=== PATIENT | male | born 1990 | race Caucasian/White ===

== ENCOUNTER 2018-04-13 20:38 | Emergency (ER) | payer BC ==
[~2018-04-13 20:38] MED LIST: CIP500 PO; DOC100 PO; FOLI-68 PO; IBU800 PO; LOR5 PO; METH30CP PO; MULT-1379 PO; NIC10R INH; THIA100T6 PO
[2018-04-13 20:40] VITALS: BP 113/72
--- NOTE | 2018-04-13 20:45 | ER Report ---
History and Physical Time Seen By MD: 20:45 HPI/ROS CHIEF COMPLAINT: Group Home clearance, alcohol intoxication. HISTORY OF PRESENT ILLNESS: 27-year-old male patient presents to emergency room with the [facility], patient is being arrested for intoxication. Patient states that he had 10-12 drinks tonight. Patient states that he is not having any pain, any nausea, vomiting or diarrhea. Patient states that he has not had any fevers or chills. Allergies: Coded Allergies: No Known Drug Allergies (Verified , 02/15/17) Home Meds Reported Medications Nicotine (NICOTROL) 10 Mg/Inh Ctr, 10 MG INH PRN Y for NICOTINE REPLACEMENT 02/18/17 Thiamine HCl (B-1) 100 Mg Tablet, 100 MG PO QDAY 02/18/17 Multivits,-,Other Min (THERA-M) 1 Each Tablet, 1 EACH PO DAILY 02/18/17 Folic Acid (FOLIC ACID) 1 Mg Tablet, 1 MG PO QDAY, TAB 02/18/17 Past Medical/Surgical History Patient has a past medical history of farsightedness, and left ear, alcohol abuse, anxiety, suicide attempt. Patient denies any surgical history. Reviewed Nurses Notes: Yes Hx Smoking: Yes Smoking Status: Current: Every Day Smoker Exposure to Second Hand Smoke?: Yes Hx Substance Use Disorder: No Hx Alcohol Use: Yes Constitutional Vital Sign - Last 24 Hours 04/13/18 20:40 Temp 98.6 Pulse 86 Resp 16 B/P (MAP) 113/72 Pulse Ox 89 O2 Delivery Room Air Physical Exam General appearance: Alert no distress. Respiratory: Chest is non tender, lungs are clear to auscultation. Cardiac: Regular rate and rhythm. Skin: Patient had some redness to his chest with old abrasions noted. There is no acute breaks in the skin. DIFFERENTIAL DIAGNOSIS: After history and physical exam differential diagnosis was considered for alcohol intoxication, alcohol abuse. Medical Decision Making ED Course/Re-evaluation ED Course Patient was admitted and examined, history and physical were obtained. Differential diagnoses were considered. On examination patient has some redness to his chest, however he did have old abrasions noted. Patient is alert, oriented although his speech is slurred. On physical exam there is no acute findings for any reason that he cannot be taken to the senior care center. I did discuss with the patient and the officers that I would like him to be in a holding cell near the medical staff so that they can monitor him. He is to talk with the nurses with any concerns. He is return to the emergency room if condition worsens. Patient officers verbalized understanding and agreement. Decision to Disposition Date: Apr 13, 2018 Decision to Disposition Time: 20:54 Depart Departure Latest Vital Signs Vital Signs Date Time Temp Pulse Resp B/P (MAP) Pulse Ox O2 Delivery O2 Flow Rate FiO2 04/13/18 20:40 98.6 86 16 113/72 89 Room Air Impression: Primary Impression: Medical clearance for incarceration Additional Impression: Alcohol intoxication Condition: Condition Unchanged Disposition: [facility] TO NURSING HOME/CORRECTIONAL F Patient Instructions: Alcohol Intoxication (ED) Additional Instructions: Increase fluid intake. Get plenty of rest. Follow up with the medical staff at the senior care center with any concerns. Quit drinking. Problem Qualifiers Additional Impression: Alcohol intoxication Complication of substance-induced condition: uncomplicated Qualified Codes: F10.920 - Alcohol use, unspecified with intoxication, uncomplicated TAJ VILLAVICENCIO Apr 13, 2018 20:45
== END 2018-04-13 21:00 ==
LOC: ER 20:53
DX: F10.920 Alcohol use, unspecified with intoxication, uncomplicated (principal); F17.210 Nicotine dependence, cigarettes, uncomplicated
CPT/HCPCS: 99281

== ENCOUNTER 2018-12-08 17:54 | Emergency (ER) | payer BC ==
--- NOTE | 2018-12-08 18:05 | ER Report ---
History and Physical Time Seen By : 18:05 HPI/ROS CHIEF COMPLAINT: altered mental status, seizure, alcohol withdrawal. HISTORY OF PRESENT ILLNESS: This is a 28 year old male. He has a history of heavy alcohol use, about a case per day plus whiskey if he can get it. Has stopped drinking suddenly, not by choice, but by financial reasons. He has a seizure and was brought to the ER. He denies history of seizures when stopping drinking, but uncertain if he is even understanding the question. He is having problems answering questions, not understanding what I am asking. I am uncertain exactly when his last drink was. He is oriented only to self. He does not want to be here. He cannot even sit ups and sign the EMS computer form. He keeps p ulling at clothing and lines and blood pressure cuff, not understanding what I am saying to him. Report from parents is that they did kick him out recently because of the drinking, he is currently staying with a friend. He has a history of detox programs in the past. REVIEW OF SYSTEMS: Unable to obtain. Allergies: Coded Allergies: No Known Drug Allergies (Verified , 12/08/18) Home Meds Discontinued Reported Medications Nicotine (NICOTROL) 10 Mg/Inh Ctr, 10 MG INH PRN PRN for NICOTINE REPLACEMENT 02/18/17 Thiamine HCl (B-1) 100 Mg Tablet, 100 MG PO QDAY 02/18/17 Multivits,Th W-Fe,Other Min (THERA-M) 1 Each Tablet, 1 EACH PO DAILY 02/18/17 Folic Acid (FOLIC ACID) 1 Mg Tablet, 1 MG PO QDAY, TAB 02/18/17 Reviewed Nurses Notes: Yes Hx Smoking: Yes Smoking Status: Current: Every Day Smoker Exposure to Second Hand Smoke?: Yes Hx Substance Use Disorder: No Hx Alcohol Use: Yes Constitutional Vital Sign - Last 24 Hours 12/08/18 12/08/18 12/08/18 12/08/18 17:58 18:03 18:15 18:24 Temp 98.6 Pulse 81 98 Resp 20 29 B/P (MAP) 164/116 164/116 (132) 151/96 (114) Pulse Ox 93 O2 Delivery Nasal Cannula 12/08/18 12/08/18 12/08/18 12/08/18 18:30 19:30 20:00 20:21 B/P (MAP) 151/91 (111) 140/103 (115) 156/96 (116) Pulse Ox 81 12/08/18 12/08/18 12/09/18 12/09/18 20:30 21:00 01:00 03:00 Pulse 74 88 B/P (MAP) 112/76 (88) 150/99 (116) Pulse Ox 95 96 12/09/18 04:24 B/P (MAP) 144/98 (113) Intake and Output 12/08/18 12/08/18 12/09/18 15:00 23:00 07:00 Intake Total 1000 ml Balance 1000 ml Physical Exam General Appearance: Confused, alert only to self. No immediate need for airw ay protection. No acute distress. Shaky and weak. Eyes: Pupils are equal, round. Reactive to light. No pallor, injection or icterus. Extraocular movements are intact. ENT: Mucous membranes are moist. Normal oral mucosa. Posterior oropharynx is normal. Normal tympanic membranes and canals. Neck: Supple and non tender. No lymphadenopathy. Respiratory: Lungs are clear to auscultation. Cardiovascular: Regular rate and rhythm. No murmurs, gallops or rubs. Normal capillary refill. Gastrointestinal: Abdomen is soft and non tender. Nondistended. Normal active bowel sounds. Neurological: Alert and oriented to self only. He is moving all extremities. No focal deficits noted by observing, but he is unable to follow commands for full neuro exam. Skin: Warm and dry. No rashes. Musculoskeletal: Extremities are nontender. Full range of motion. No tenderness in palpation of the cervical, thoracic and lumbar spine. DIFFERENTIAL DIAGNOSIS: After history and physical exam, differential diagnosis was considered for altered mental status with seizures and confusion when stopping drinking, likely the main problem is alcohol withdrawal. Do not know if during the seizure he had a head injury so we will have to rule this out as well. We will need to look for other metabolic problems. Medical Decision Making Data Points Result Diagram: 12/08/18192712/08/181927 Laboratory Hematology Test 12/08/18 18:53 12/08/18 19:28 12/08/18 20:05 Blood Gas Puncture Site Left radial Blood Gas Patient Temperature 98.6 DEGREES Arterial Blood pH 7.47 (7.35-7.45) Arterial Blood Partial Pressure CO2 41 mmHg (32-37) Arterial Blood Partial Pressure O2 47 mmHg (60-80) Arterial Blood HCO3 30 mmol/L (20-26) Arterial Blood Oxygen Saturation 85 % (92-100) Arterial Blood Base Excess 6.0 mmol/L Alcides Test Acceptable Carboxyhemoglobin 3.2 % (< 5.0) Oxygen Liters/Minute 33 Red Blood Count 4.87 M/uL (4.00-5.60) Mean Corpuscular Volume 97.2 fL (80.0-96.0) Mean Corpuscular Hemoglobin 33.2 pg (26.0-33.0) Mean Corpuscular Hemoglobin Concent 34.2 g/dL (32.0-36.0) Red Cell Distribution Width 14.1 % (11.5-14.5) Mean Platelet Volume 8.3 fL (7.2-11.1) Neutrophils (%) (Auto) % (39.4-72.5) Lymphocytes (%) (Auto) % (17.6-49.6) Monocytes (%) (Auto) % (4.1-12.4) Eosinophils (%) (Auto) % (0.4-6.7) Basophils (%) (Auto) % (0.3-1.4) Nucleated RBC Relative Count (auto) /100WBC Neutrophils # (Auto) K/uL (2.0-7.4) Lymphocytes # (Auto) K/uL (1.3-3.6) Monocytes # (Auto) K/uL (0.3-1.0) Eosinophils # (Auto) K/uL (0.0-0.5) Basophils # (Auto) K/uL (0.0-0.1) Nucleated RBC Absolute Count (auto) K/uL Neutrophils % (Manual) 88 % (39.4-72.5) Lymphocytes % (Manual) 4 % (17.6-49.6) Monocytes % (Manual) 8 % (4.1-12.4) Eosinophils % (Manual) 0 % (0.4-6.7) Basophils % (Manual) 0 % (0.3-1.4) Platelet Estimate Low Target Cells 1+ Sodium Level 140 mmol/L (137-145) Potassium Level 3.9 mmol/L (3.5-5.0) Chloride Level 102 mmol/L (98-107) Carbon Dioxide Level 31 mmol/L (22-30) Blood Urea Nitrogen 11 mg/dl (9-21) Creatinine 0.80 mg/dl (0.66-1.25) Glomerular Filtration Rate Calc > 60.0 Random Glucose 102 mg/dl (75-110) Calcium Level 8.3 mg/dl (8.4-10.2) Total Bilirubin 0.9 mg/dl (0.2-1.3) Aspartate Amino Transf (AST/SGOT) 257 U/L (0-35) Alanine Aminotransferase (ALT/SGPT) 234 U/L (0-56) Alkaline Phosphatase 138 U/L (0-126) Ammonia 26 UMOL/L (9-33) Troponin I 0.066 ng/ml Total Protein 6.7 g/dl (6.3-8.2) Albumin 4.2 g/dl (3.5-5.0) Serum Alcohol < 10 mg/dl Urine Color Yellow Urine Clarity Clear Urine pH 8.0 pH (4.8-9.5) Urine Specific [place] 1.010 Urine Protein Negative mg/dL (NEGATIVE) Urine Glucose (UA) Negative mg/dL (NEGATIVE) Urine Ketones Negative mg/dL (NEGATIVE) Urine Blood Small (NEGATIVE) Urine Nitrite Negative (NEGATIVE) Urine Bilirubin Negative (NEGATIVE) Urine Urobilinogen Negative mg/dL (0.2-1.9) Urine Leukocyte Esterase Negative (NEGATIVE) Urine RBC 1 /HPF (0-2/HPF) Urine WBC <1 /HPF (0-5/HPF) Urine Squamous Epithelial Cells None /LPF (</=FEW) Urine Bacteria Negative /HPF (NONE-FEW) Urine Mucus None /HPF (NONE-FEW) Urine Opiates Screen Negative Urine Barbiturates Screen Negative Ur Tricyclic Antidepressants Screen Negative Urine Phencyclidine Screen Negative Urine Amphetamines Screen Negative Urine Benzodiazepines Screen Negative Urine Cocaine Screen Negative Urine Cannabinoids Screen Negative Chemistry Test 12/08/18 18:53 12/08/18 19:28 12/08/18 20:05 Blood Gas Puncture Site Left radial Blood Gas Patient Temperature 98.6 DEGREES Arterial Blood pH 7.47 (7.35-7.45) Arterial Blood Partial Pressure CO2 41 mmHg (32-37) Arterial Blood Partial Pressure O2 47 mmHg (60-80) Arterial Blood HCO3 30 mmol/L (20-26) Arterial Blood Oxygen Saturation 85 % (92-100) Arterial Blood Base Excess 6.0 mmol/L Alcides Test Acceptable Carboxyhemoglobin 3.2 % (< 5.0) Oxygen Liters/Minute 33 White Blood Count 3.5 k/uL (4.5-11.0) Red Blood Count 4.87 M/uL (4.00-5.60) Hemoglobin 16.2 g/dL (14.0-18.0) Hematocrit 47.3 % (42.0-52.0) Mean Corpuscular Volume 97.2 fL (80.0-96.0) Mean Corpuscular Hemoglobin 33.2 pg (26.0-33.0) Mean Corpuscular Hemoglobin Concent 34.2 g/dL (32.0-36.0) Red Cell Distribution Width 14.1 % (11.5-14.5) Platelet Count 24 K/uL (150-450) Mean Platelet Volume 8.3 fL (7.2-11.1) Neutrophils (%) (Auto) % (39.4-72.5) Lymphocytes (%) (Auto) % (17.6-49.6) Monocytes (%) (Auto) % (4.1-12.4) Eosinophils (%) (Auto) % (0.4-6.7) Basophils (%) (Auto) % (0.3-1.4) Nucleated RBC Relative Count (auto) /100WBC Neutrophils # (Auto) K/uL (2.0-7.4) Lymphocytes # (Auto) K/uL (1.3-3.6) Monocytes # (Auto) K/uL (0.3-1.0) Eosinophils # (Auto) K/uL (0.0-0.5) Basophils # (Auto) K/uL (0.0-0.1) Nucleated RBC Absolute Count (auto) K/uL Neutrophils % (Manual) 88 % (39.4-72.5) Lymphocytes % (Manual) 4 % (17.6-49.6) Monocytes % (Manual) 8 % (4.1-12.4) Eosinophils % (Manual) 0 % (0.4-6.7) Basophils % (Manual) 0 % (0.3-1.4) Platelet Estimate Low Target Cells 1+ Glomerular Filtration Rate Calc > 60.0 Calcium Level 8.3 mg/dl (8.4-10.2) Total Bilirubin 0.9 mg/dl (0.2-1.3) Aspartate Amino Transf (AST/SGOT) 257 U/L (0-35) Alanine Aminotransferase (ALT/SGPT) 234 U/L (0-56) Alkaline Phosphatase 138 U/L (0-126) Ammonia 26 UMOL/L (9-33) Troponin I 0.066 ng/ml Total Protein 6.7 g/dl (6.3-8.2) Albumin 4.2 g/dl (3.5-5.0) Serum Alcohol < 10 mg/dl Urine Color Yellow Urine Clarity Clear Urine pH 8.0 pH (4.8-9.5) Urine Specific [place] 1.010 Urine Protein Negative mg/dL (NEGATIVE) Urine Glucose (UA) Negative mg/dL (NEGATIVE) Urine Ketones Negative mg/dL (NEGATIVE) Urine Blood Small (NEGATIVE) Urine Nitrite Negative (NEGATIVE) Urine Bilirubin Negative (NEGATIVE) Urine Urobilinogen Negative mg/dL (0.2-1.9) Urine Leukocyte Esterase Negative (NEGATIVE) Urine RBC 1 /HPF (0-2/HPF) Urine WBC <1 /HPF (0-5/HPF) Urine Squamous Epithelial Cells None /LPF (</=FEW) Urine Bacteria Negative /HPF (NONE-FEW) Urine Mucus None /HPF (NONE-FEW) Urine Opiates Screen Negative Urine Barbiturates Screen Negative Ur Tricyclic Antidepressants Screen Negative Urine Phencyclidine Screen Negative Urine Amphetamines Screen Negative Urine Benzodiazepines Screen Negative Urine Cocaine Screen Negative Urine Cannabinoids Screen Negative Toxicology Test 12/08/18 19:28 12/08/18 20:05 Serum Alcohol < 10 mg/dl Urine Opiates Screen Negative Urine Barbiturates Screen Negative Ur Tricyclic Antidepressants Screen Negative Urine Phencyclidine Screen Negative Urine Amphetamines Screen Negative Urine Benzodiazepines Screen Negative Urine Cocaine Screen Negative Urine Cannabinoids Screen Negative Urinalysis Test 12/08/18 20:05 Urine Color Yellow Urine Clarity Clear Urine pH 8.0 pH (4.8-9.5) Urine Specific [place] 1.010 Urine Protein Negative mg/dL (NEGATIVE) Urine Glucose (UA) Negative mg/dL (NEGATIVE) Urine Ketones Negative mg/dL (NEGATIVE) Urine Blood Small (NEGATIVE) Urine Nitrite Negative (NEGATIVE) Urine Bilirubin Negative (NEGATIVE) Urine Urobilinogen Negative mg/dL (0.2-1.9) Urine Leukocyte Esterase Negative (NEGATIVE) Urine RBC 1 /HPF (0-2/HPF) Urine WBC <1 /HPF (0-5/HPF) Urine Squamous Epithelial Cells None /LPF (</=FEW) Urine Bacteria Negative /HPF (NONE-FEW) Urine Mucus None /HPF (NONE-FEW) EKG/Imaging Imaging HEAD CT: Indication: Altered mental status. Technique: Contiguous axial sections were obtained from the base to the vertex without contrast enhancement. One of the following dose optimization techniques was utilized in the performance of this exam: Automated exposure control; adjustment of the mA and/or kV according to the patient's size; or use of an iterative reconstruction technique. Specific details can be referenced in the facility's radiology CT exam operational policy. Comparison: 11/14/2016 Findings: There is no evidence of intra-axial or extra-axial hemorrhage. No focal areas of decreased or increased attenuation are identified. There is no evidence of mass, edema, or shift of the midline structures. The size, shape, and configuration of the ventricular system are normal. The skeletal structures are intact and unremarkable. There is no evidence of fracture or other acute deformity. The visualized paranasal sinuses and mastoid air cells are clear. Impression: No acute deformity or significant change. Report Dictated By: Tito Culp MD at 12/08/2018 9:51 PM ED Course/Re-evaluation Clinical Indication for ER IV: Hydration, IV Access ED Course Initial alcohol withdrawal shows CIWA score very high. He did receive 2mg of Ativan by EMS. Another 2 mg given now. Labs and CT scan obtained. He has elevated liver enzymes and his platelets are low. No acute process seen on CT scan. He keeps wanting to leave, but still very confused. Another dose of Ativan 2mg IV given per CIWA protocol. No beds available, so currently continuing treatment in the ER until we determine if he is improving or if staffing available. The patient was monitored through the night in the ER. No further seizures. He slept most of the night. Awoke in the morning, not remembering why he was here, but re-informed him of events. He is no longer confused. Still states that he does not want to stay in the hospital. Reviewed his liver function tests, and low platelets with precautions regarding injuries and bleeding. Discharged home. Decision to Disposition Date: Dec 09, 2018 Decision to Disposition Time: 06:02 Depart Departure Latest Vital Signs Vital Signs Date Time Temp Pulse Resp B/P (MAP) Pulse Ox O2 Delivery O2 Flow Rate FiO2 12/09/18 04:24 144/98 (113) 12/09/18 03:00 88 12/08/18 21:00 96 12/08/18 18:24 29 12/08/18 17:58 98.6 Nasal Cannula Impression: Primary Impression: Alcohol withdrawal Additional Impression: Perceptual disturbances and seizures concurrent with and due to alcohol withdrawal Condition: Improved Disposition: HOME OR SELF-CARE New Scripts No Active Prescriptions or Reported Meds Patient Instructions: Alcohol Dependence (ED), Alcohol Withdrawal (ED), Thrombocytopenia (ED) Additional Instructions: Your seizure last night appears to have been due to withdrawal from alcohol. This can be a life threatening condition when withdrawing from heavy alcohol use. The option to be admitted to the hospital for alcohol detox is still available should you change your mind. Your liver function tests were elevated showing ongoing damage to your liver from alcohol use. Your platelets, the clotting blood cells, were low from alcohol use as well. The way to help these improve would be to stop drinking, otherwise they will not improve and will continue to worsen. Problem Qualifiers Primary Impression: Alcohol withdrawal Complication of substance-induced condition: with perceptual disturbance Qualified Codes: F10.232 - Alcohol dependence with withdrawal with perceptual disturbance KEE OWENS MD Dec 08, 2018 18:05
[2018-12-08] MEDS ORDERED: LORazepam 2 MG/ML VIAL IVP ONE ×2 (18:20→20:30)
[2018-12-08] MEDS ORDERED: THIAMINE HCL(*) 200 MG/2 ML IN 100 MG, FOLIC ACID(*) 50 MG/10 ML INJ 1 MG, MULTIVITAMIN... IV ONE ×2 (18:20→18:25)
[2018-12-08] MEDS ORDERED: ONDANSETRON 4 MG/2 ML VIAL ONE (18:25)
[2018-12-08] MEDS ORDERED: ONDANSETRON 4 MG/2 ML VIAL IVP ONE (18:30)
[2018-12-08 19:51] LABS: PLATELET COUNT, AUTOMATED 24 K/uL (150-450)
--- NOTE | 2018-12-08 21:59 | RADIOLOGY IMAGING REPORT ---
[place] [facility] [place] NAME: Cyrus Huizar : 1990 MR: [id number] V: [id number] EXAM DATE: [id number] ORDERING PHYSICIAN: KEE OWENS TECHNOLOGIST: Location: [facility] Patient: Cyrus Huizar : 1990 Visit/Account:[id number] Date of Sevice: 12/08/[address]: Indication: Altered mental status. Technique: Contiguous axial sections were obtained from the base to the vertex without contrast enhan cement. One of the following dose optimization techniques was utilized in the performance of this exam: Autom ated exposure control; adjustment of the mA and/or kV according to the patient's size; or use of an i terative reconstruction technique. Specific details can be referenced in the facility's radiology CT exam operational policy. Comparison: 11/14/2016 Findings: There is no evidence of intra-axial or extra-axial hemorrhage. No focal areas of decreased or increased attenuation are identified. There is no evidence of mass, edema, or shift of the midline structures. The size, shape, and configuration of the ventricular system are normal. The skeletal st ructures are intact and unremarkable. There is no evidence of fracture or other acute deformity. The visualized paranasal sinuses and mastoid air cells are clear. Impression: No acute deformity or significant change. Report Dictated By: Tito Culp MD at 12/08/2018 9:51 PM Report E-Signed By: Tito Culp MD at 12/08/2018 9:54 PM [id number]
[2018-12-09 04:24] VITALS: BP 144/98
== END 2018-12-09 06:40 | disposition home or self-care (01) ==
LOC: ER 18:22
DX: F10.230 Alcohol dependence with withdrawal, uncomplicated (principal); R56.9 Unspecified convulsions
CPT/HCPCS: 36600; 70450; 80305; 80320; 81001; 82140; 82375; 82803; 84443; 84484; 85025; 96365; 96366; 96375; 96376; 99284; J2060; J2405; J3411; J7030; 82040; 82247; 82310; 82374; 82435; 82565; 82947; 84075; 84132; 84155; 84295; 84450; 84460; 84520

== ENCOUNTER → 2018-12-08 | Outpatient (CLI) | payer BC | LOC: AMB 17:30 | PROVIDERS: ATTEND Nurse Practitioner | DX: R56.9 Unspecified convulsions (principal); R11.2 Nausea with vomiting, unspecified; R45.1 Restlessness and agitation; F10.239 Alcohol dependence with withdrawal, unspecified | CPT/HCPCS: A0425; A0427 ==

== ENCOUNTER 2018-12-09 13:35 | Emergency (ER) | payer BC ==
[2018-12-09 13:36] VITALS: BP 123/90
--- NOTE | 2018-12-09 13:49 | ER Report ---
History and Physical Time Seen By MD: 13:49 Hx. of Stated Complaint: LONG TERM CLEARANCE - ETOH INTOX HPI/ROS CHIEF COMPLAINT: Usp clearance HISTORY OF PRESENT ILLNESS: This is a 28-year-old male who presents to the emergency department via [facility] Department for alcohol intoxication and a correction clearance. The patient was seen and evaluated in the emergency department yesterday, however the patient did leave the emergency department, went home and continued to drink alcohol, had alcohol today as well, unsure how much, the patient was picked up downtown by the pleased, as he was standing up downtown he did fall into a wall injuring his right cheek, there is some swelling, no open wounds, no loss of consciousness or C-spine tenderness, patient denies pain. Patient denies any other injuries, no other pain, no chest pain or shortness of breath. Patient was offered detox in the behavioral health unit, the patient declined. REVIEW OF SYSTEMS: Constitutional: No fever, no chills. Eyes: No discharge. ENT: No sore throat. Cardiovascular: No chest pain, no palpitations. Respiratory: No cough, no shortness of breath. Gastrointestinal: No abdominal pain, no vomiting. Genitourinary: No hematuria. Musculoskeletal: As above. Skin: As above. Neurological: No headache. Psychological: Asthma. Allergies: Coded Allergies: No Known Drug Allergies (Verified , 12/08/18) Home Meds Discontinued Reported Medications Nicotine (NICOTROL) 10 Mg/Inh Ctr, 10 MG INH PRN PRN for NICOTINE REPLACEMENT 02/18/17 Thiamine HCl (B-1) 100 Mg Tablet, 100 MG PO QDAY 02/18/17 Multivits, W-Fe,Other Min (THERA-M) 1 Each Tablet, 1 EACH PO DAILY 02/18/17 Folic Acid (FOLIC ACID) 1 Mg Tablet, 1 MG PO QDAY, TAB 02/18/17 Past Medical/Surgical History Patient has a past medical and surgical history per glasses, deaf in left ear, significant abuse of alcohol, depression, anxiety alcohol withdrawal seizures. Hx Smoking: Yes Smoking Status: Current: Every Day Smoker Exposure to Second Hand Smoke?: Yes Hx Substance Use Disorder: No Hx Alcohol Use: Yes Constitutional Vital Sign - Last 24 Hours 12/09/18 13:36 Temp 97.4 Pulse 90 Resp 18 B/P (MAP) 123/90 Pulse Ox 92 O2 Delivery Room Air Physical Exam General Appearance: The patient is alert, has no immediate need for airway protection and no signs of toxicity. Eyes: 4mm Pupils equal and round no pallor or injection. ENT, Mouth: Mucous membranes are dry. Respiratory: There are no retractions, lungs are clear to auscultation. Cardiovascular: Regular rate and rhythm, no murmurs, clicks or rubs. Gastrointestinal: Abdomen is soft and non tender, no masses, bowel sounds normal. Neurological: Alert and oriented 3, moving all extremities, following all commands. No focal neuro deficits. Skin: Contusion, swelling to the right cheek, no crepitus, depressions or obvious deformities. Small abrasion to the left cheek. Musculoskeletal: Neck is supple non tender. Extremities are nontender, nonswollen and have full range of motion. DIFFERENTIAL DIAGNOSIS: After history and physical exam differential diagnosis was considered for alcohol intoxication, suicidal ideation, facial fracture, intracranial hemorrhage, alcohol detox. Medical Decision Making ED Course/Re-evaluation ED Course Patient was admitted to room. A history and physical were obtained. Differential diagnoses were considered. 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 As the patient was being escorted out to the police car, he did trip and fall forward, hit his left cheek on part of the car has a small abrasion, patient was reevaluated no concerning findings, his tetanus was updated, the wound was cleansed and hematocrit was applied and the wound was covered with a bandage. Patient was then escorted out to the officers car and was able to get in the car with his assistance. Patient did have a strong odor of EtOH again the patient declined an admission to behavioral health units for detox. 12/09/2018 2:10:46 pm as the patient was being escorted out the police car, he stumbled, fell forward and hit his left cheek on the corner of the car, no loss of consciousness, no C-spine tenderness, he does have a very small abrasion to the left cheek. Patient was reevaluated, patient denied discomfort, was irrigated, bacitracin and bandage were applied the patient's tetanus was updated as well. Decision to Disposition Date: Dec 09, 2018 Decision to Disposition Time: 14:31 Depart Departure Latest Vital Signs Vital Signs Date Time Temp Pulse Resp B/P (MAP) Pulse Ox O2 Delivery O2 Flow Rate FiO2 12/09/18 13:36 97.4 90 18 123/90 92 Room Air Impression: Primary Impression: Alcohol intoxication Condition: Condition Unchanged Disposition: [facility] TO LONG TERM/CORRECTIONAL F New Scripts No Active Prescriptions or Reported Meds Patient Instructions: Abuse of Alcohol (ED), Acute Wound Care (ED), Alcohol Intoxication (ED) Additional Instructions: Please drink plenty of water. Get plenty of rest. Avoid alcohol. Return to the ED for any other concerns or worsening symptoms. Monitor for alcohol withdrawal seizures. Monitor for signs of infection to the right cheek, increased redness, swelling, drainage. Keep it covered with a bandage and antibiotic ointment. Tetanus has been updated. Problem Qualifiers Primary Impression: Alcohol intoxication Complication of substance-induced condition: uncomplicated Qualified Codes: F10.920 - Alcohol use, unspecified with intoxication, uncomplicated MICHELLE SINGH TEST BORER-BC Dec 09, 2018 13:49
[2018-12-09] MEDS ORDERED: DIPHTH/TETANUS/ACEL. PERTUSSIS IM ONLY ONE (14:15)
== END 2018-12-09 14:27 ==
LOC: ER 13:53
DX: F10.129 Alcohol abuse with intoxication, unspecified (principal)
CPT/HCPCS: 90471; 90715; 99283

== ENCOUNTER → 2018-12-09 | Outpatient (CLI) | payer BC | LOC: AMB 13:13 | PROVIDERS: ATTEND Nurse Practitioner | DX: R41.82 Altered mental status, unspecified (principal); F10.121 Alcohol abuse with intoxication delirium | CPT/HCPCS: A0998 ==

== ENCOUNTER 2019-03-27 23:11 | Emergency (ER) | payer BC ==
--- NOTE | 2019-03-27 23:10 | ER Report ---
History and Physical Time Seen By MD: 23:18 HPI/ROS CHIEF COMPLAINT: ? 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 He is complaining of right shoulder pain. He appears to have a dislocation. On visualization. Patient denies having a seizure. Patient has a history of alcohol abuse. EMS checked a fingerstick sugar at 104. They administered fentanyl 50 g IV for pain without improvement. Patient was not postictal on arrival to the ER. He has a history of alcoholism and alcohol withdrawal seizures. Patient denies alcohol ingestion. REVIEW OF SYSTEMS: Respiratory: No cough, no dyspnea. Cardiovascular: No chest pain, no palpitations. Gastrointestinal: No vomiting, no abdominal pain. Musculoskeletal: No back pain. Allergies: Coded Allergies: No Known Drug Allergies (Verified , 12/08/18) Home Meds No Active Prescriptions or Reported Meds Reviewed Nurses Notes: Yes Old Medical Records Reviewed: Yes Hx Smoking: Yes Smoking Status: Current: Every Day Smoker Exposure to Second Hand Smoke?: Yes Hx Substance Use Disorder: No Hx Alcohol Use: Yes Constitutional Vital Sign - Last 24 Hours 03/27/19 03/27/19 03/27/19 03/27/19 23:15 23:18 23:30 23:41 Temp 98.3 Pulse 85 65 Resp 15 13 B/P (MAP) 151/109 151/109 (123) 152/97 (115) Pulse Ox 88 92 O2 Delivery Room Air 03/28/19 03/28/19 00:00 00:11 Pulse 71 Resp 29 B/P (MAP) 157/109 (125) Pulse Ox 88 Physical Exam Vital signs stable, afebrile, pulse ox normal. General Appearance: The patient is alert, has no immediate need for airway protection and no current signs of toxicity. The patient of the head and neck reveal no tenderness or trauma.. Patient's is not incontinent of urine. HEENT: Pupils equal and round no injection. Oropharynx without redness or exudate, no dental trauma to the tongue. Respiratory: Chest is non tender, lungs are clear to auscultation. No chest wall tenderness Cardiac: regular rate and rhythm Gastrointestinal: Abdomen is soft and non tender, no masses, bowel sounds normal. Musculoskeletal: Neck: Neck is supple and non tender. Extremities have full range of motion and are non tender. Right shoulder dislocation appearance Skin: No rashes or lesions. Diffuse hives DIFFERENTIAL DIAGNOSIS: After history and physical exam differential diagnosis was considered for left shoulder contusion, left shoulder dislocation, left shoulder fracture,? Alcoholic withdrawal Seizure Medical Decision Making Data Points Result Diagram: 03/27/19 2311 03/27/19 2322 Laboratory Hematology Test 03/27/19 23:11 03/27/19 23:22 Red Blood Count 5.32 M/uL (4.00-5.60) Mean Corpuscular Volume 96.8 fL (80.0-96.0) Mean Corpuscular Hemoglobin 33.1 pg (26.0-33.0) Mean Corpuscular Hemoglobin Concent 34.2 g/dL (32.0-36.0) Red Cell Distribution Width 13.8 % (11.5-14.5) Mean Platelet Volume 9.1 fL (7.2-11.1) Neutrophils (%) (Auto) 60.3 % (39.4-72.5) Lymphocytes (%) (Auto) 18.8 % (17.6-49.6) Monocytes (%) (Auto) 18.1 % (4.1-12.4) Eosinophils (%) (Auto) 0.5 % (0.4-6.7) Basophils (%) (Auto) 2.3 % (0.3-1.4) Nucleated RBC Relative Count (auto) 0.0 /100WBC Neutrophils # (Auto) 2.8 K/uL (2.0-7.4) Lymphocytes # (Auto) 0.9 K/uL (1.3-3.6) Monocytes # (Auto) 0.8 K/uL (0.3-1.0) Eosinophils # (Auto) 0.0 K/uL (0.0-0.5) Basophils # (Auto) 0.1 K/uL (0.0-0.1) Nucleated RBC Absolute Count (auto) 0.00 K/uL Serum Alcohol < 10 mg/dl Sodium Level 137 mmol/L (137-145) Potassium Level 3.4 mmol/L (3.5-5.0) Chloride Level 97 mmol/L (98-107) Carbon Dioxide Level 21 mmol/L (22-30) Blood Urea Nitrogen 11 mg/dl (9-21) Creatinine 1.10 mg/dl (0.66-1.25) Glomerular Filtration Rate Calc > 60.0 Random Glucose 170 mg/dl (75-110) Lactate 4.3 mmol/L (0.7-2.1) Calcium Level 10.4 mg/dl (8.4-10.2) Total Bilirubin 1.6 mg/dl (0.2-1.3) Aspartate Amino Transf (AST/SGOT) 169 U/L (0-35) Alanine Aminotransferase (ALT/SGPT) 173 U/L (0-56) Alkaline Phosphatase 139 U/L (0-126) Total Protein 8.3 g/dl (6.3-8.2) Albumin 4.9 g/dl (3.5-5.0) Chemistry Test 03/27/19 23:11 03/27/19 23:22 White Blood Count 4.6 k/uL (4.5-11.0) Red Blood Count 5.32 M/uL (4.00-5.60) Hemoglobin 17.6 g/dL (14.0-18.0) Hematocrit 51.5 % (42.0-52.0) Mean Corpuscular Volume 96.8 fL (80.0-96.0) Mean Corpuscular Hemoglobin 33.1 pg (26.0-33.0) Mean Corpuscular Hemoglobin Concent 34.2 g/dL (32.0-36.0) Red Cell Distribution Width 13.8 % (11.5-14.5) Platelet Count 87 K/uL (150-450) Mean Platelet Volume 9.1 fL (7.2-11.1) Neutrophils (%) (Auto) 60.3 % (39.4-72.5) Lymphocytes (%) (Auto) 18.8 % (17.6-49.6) Monocytes (%) (Auto) 18.1 % (4.1-12.4) Eosinophils (%) (Auto) 0.5 % (0.4-6.7) Basophils (%) (Auto) 2.3 % (0.3-1.4) Nucleated RBC Relative Count (auto) 0.0 /100WBC Neutrophils # (Auto) 2.8 K/uL (2.0-7.4) Lymphocytes # (Auto) 0.9 K/uL (1.3-3.6) Monocytes # (Auto) 0.8 K/uL (0.3-1.0) Eosinophils # (Auto) 0.0 K/uL (0.0-0.5) Basophils # (Auto) 0.1 K/uL (0.0-0.1) Nucleated RBC Absolute Count (auto) 0.00 K/uL Serum Alcohol < 10 mg/dl Glomerular Filtration Rate Calc > 60.0 Lactate 4.3 mmol/L (0.7-2.1) Calcium Level 10.4 mg/dl (8.4-10.2) Total Bilirubin 1.6 mg/dl (0.2-1.3) Aspartate Amino Transf (AST/SGOT) 169 U/L (0-35) Alanine Aminotransferase (ALT/SGPT) 173 U/L (0-56) Alkaline Phosphatase 139 U/L (0-126) Total Protein 8.3 g/dl (6.3-8.2) Albumin 4.9 g/dl (3.5-5.0) Toxicology Test 03/27/19 23:11 Serum Alcohol < 10 mg/dl EKG/Imaging Imaging X-ray: Right shoulder, 1 view was obtained. I viewed the images myself on the PACS system. My interpretation of the images is: Apparent anterior dislocation, no fracture noted. The radiologist interpretation had no clinically significant variation from this interpretation. X-ray: Right shoulder single view postreduction was obtained. I viewed the images myself on the PACS system. My interpretation of the images is: Normal alignment of right shoulder, Hill-Sachs deformity impact, deformity. The radiologist interpretation had no clinically significant variation from this interpretation. ED Course/Re-evaluation Clinical Indication for ER IV: Hydration, IV Access ED Course Patient was admitted to an examination room. H&P was done. The differential diagnoses was considered. Patient denies seizure. In fact, he was attempting to escape from EMS when they arrived. He is unable to move because severe pain in his right shoulder. There is to be dislocated its resting inferiorly, a diagnostic single view x-ray of the right shoulder was performed. Showing obvious dislocation. Gentle traction was applied to the patient's right shoulder and it was gently externally rotated. There appeared to be reduction. Postreduction film was performed which showed reduction ointment. The right upper extremity appears neurovascularly intact. Patient was placed in shoulder immobilizer. Patient was intense itching. He was given Benadryl 25 mg IV. And slight Medrol 125 mg IV. Patient's laboratory studies show no alcohol in his system. His lactic acid is 4.3. I suspect patient had a seizure and was hypoxic and developed lactic acidosis. He was treated with IV fluid hydration. Patient was discharged home to follow-up with orthopedics and his primary care physician. Procedure: Dislocation reduction. The shoulder was reduced in the usual fashion without complications. Post reduction the patient's neurovascular exam is normal. Post reduction x-ray demonstrates reduction of the joint to the anatomic position. The procedure was performed by myself. Decision to Disposition Date: Mar 28, 2019 Decision to Disposition Time: 00:03 Depart Departure Latest Vital Signs Vital Signs Date Time Temp Pulse Resp B/P (MAP) Pulse Ox O2 Delivery O2 Flow Rate FiO2 03/28/19 00:11 71 29 88 03/28/19 00:00 157/109 (125) 03/27/19 23:15 98.3 Room Air Impression: Primary Impression: Hill Sachs deformity, right Additional Impressions: Dislocation of right shoulder joint Thrombocytopenia Pruritus Condition: Improved Disposition: HOME OR SELF-CARE Referrals: JOSEE LINO MD New Scripts No Active Prescriptions or Reported Meds Patient Instructions: Itchy Skin (ED), Shoulder Dislocation (ED) Additional Instructions: Continue Benadryl 25 mg every 6-8 hours as needed for itching Follow-up of with primary care if unimproved in 3-5 days Follow-up with orthopedics for evaluation of your right shoulder Problem Qualifiers Additional Impressions: Dislocation of right shoulder joint Encounter type: initial encounter Qualified Codes: S43.004A - Unspecified dislocation of right shoulder joint, initial encounter MERARI TALBOT DO Mar 27, 2019 23:10
[~2019-03-27 23:11] MED LIST changes: -KET10 PO
[2019-03-27 23:32] LABS: PLATELET COUNT, AUTOMATED 87 K/uL (150-450)
[2019-03-27] MEDS ORDERED: NS(*) 0.9% 1000 ML BAG 1,000 ML IV ONE (23:45)
[2019-03-27] MEDS ORDERED: diphenhydrAMINE 50 MG/ML VIAL IVP ONE (23:50)
[2019-03-28] VITALS: BP 157/109
--- NOTE | 2019-03-28 | RADIOLOGY IMAGING REPORT ---
FACILITY: [facility] [place] PATIENT NAME: Cyrus Huizar : 1990 MR: [id number] V: [id number] EXAM DATE: ORDERING PHYSICIAN: MERARI TALBOT TECHNOLOGIST: Location: [facility] [place] Patient: Cyrus Huizar : 1990 Visit/Account:[id number] Date of Sevice: 03/27/2019 SHOULDER 1 VIEW RIGHT HISTORY: Injury. Pain. COMPARISON: None FINDINGS: Right shoulder: Anterior-inferior glenohumeral dislocation. Clavicle is intact. AC joint is normal. IMPRESSION: 1. Right anterior-inferior glenohumeral dislocation. Report Dictated By: Darren Morales MD at 03/27/2019 11:55 PM Report E-Signed By: Darren Morales MD at 03/27/2019 11:55 PM WSN:[id number]
--- NOTE | 2019-03-28 00:01 | RADIOLOGY IMAGING REPORT ---
FACILITY: [facility] PATIENT NAME: Cyrus Huizar : 1990 MR: [id number] V: [id number] EXAM DATE: ORDERING PHYSICIAN: MERARI TALBOT TECHNOLOGIST: Location: [facility] [place] Patient: Cyrus Huizar : 1990 Visit/Account:[id number] Date of Sevice: 03/27/2019 SHOULDER 1 VIEW RIGHT HISTORY: Shoulder pain. Relocation. COMPARISON: None FINDINGS: Right shoulder: Interval reduction of the glenohumeral joint. Large Hill-Sachs impaction fracture. No discrete bony Bankart lesion. AC joint is normal. Clavicle is intact. IMPRESSION: 1. Interval reduction of the right glenohumeral joint. Large Hill-Sachs impaction fracture. Report Dictated By: Darren Morales MD at 03/27/2019 11:55 PM Report E-Signed By: Darren Morales MD at 03/27/2019 11:56 PM WSN:[id number]
[2019-03-28] MEDS ORDERED: methylPREDNIS SUCC 125 MG/2ML IVP ONE (00:15)
== END 2019-03-28 00:36 | disposition home or self-care (01) ==
LOC: ER 23:16
DX: S42.291A Other displaced fracture of upper end of right humerus, initial encounter for closed fracture (principal); S43.004A Unspecified dislocation of right shoulder joint, initial encounter; D69.6 Thrombocytopenia, unspecified; L29.9 Pruritus, unspecified
CPT/HCPCS: 23650; 73020; 80320; 83605; 85025; 96374; 96375; 99284; J1200; J2930; J7030; L3982; 82040; 82247; 82310; 82374; 82435; 82565; 82947; 84075; 84132; 84155; 84295; 84450; 84460; 84520; A4565

== ENCOUNTER → 2019-03-27 | Outpatient (CLI) | payer BC ==
[~2019-03-27] MED LIST changes: +KET10 PO
== END ==
LOC: AMB 22:47
PROVIDERS: ATTEND Nurse Practitioner
DX: M25.511 Pain in right shoulder (principal); R55 Syncope and collapse; F41.9 Anxiety disorder, unspecified; R41.82 Altered mental status, unspecified
CPT/HCPCS: A0425; A0427

== ENCOUNTER 2019-03-31 13:50 | Emergency (ER) | payer OTHER, BC ==
[2019-03-31] MEDS ORDERED: MORPHINE 4 MG/ML SDV IVP ONE (14:00)
--- NOTE | 2019-03-31 14:02 | ER Report ---
History and Physical Time Seen By MD: 14:01 Hx. of Stated Complaint: Dislocated shoulder HPI/ROS CHIEF COMPLAINT: Dislocated shoulder HISTORY OF PRESENT ILLNESS: 28 year old male presents with right shoulder dislocation. He presented to the ED on Tuesday of this past week with a dislocated right shoulder that was reduced. Patient reports he was down on his knees at work and reaching up for something with his right arm when he felt it dislocate again. He was not wearing his sling and he has not followed-up with ortho yet. Patient rates pain a 10 out of 10 in his right shoulder. REVIEW OF SYSTEMS: Respiratory: No cough, no dyspnea. Cardiovascular: No chest pain, no palpitations. Gastrointestinal: No vomiting, no abdominal pain. Musculoskeletal: Right shoulder pain as noted above. 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 No past surgical hx. Past hospitalization after a fall out of bunk bed and hitting left side at age 20. Reviewed Nurses Notes: Yes Hx Smoking: Yes Smoking Status: Current: Every Day Smoker Exposure to Second Hand Smoke?: Yes Hx Substance Use Disorder: No Hx Alcohol Use: Yes Constitutional Vital Sign - Last 24 Hours 03/31/19 03/31/19 03/31/19 03/31/19 14:01 14:25 14:33 14:36 Temp 98.4 Pulse 89 68 67 83 Resp 22 16 22 22 B/P (MAP) 155/96 144/103 (117) 158/111 (127) Pulse Ox 97 99 100 88 O2 Delivery Room Air Nasal Cannula Nasal Cannula Ambu-Bag O2 Flow Rate 2 2 2 03/31/19 03/31/19 03/31/19 03/31/19 14:37 14:39 14:41 14:46 Pulse 74 71 88 Resp 22 18 23 31 B/P (MAP) 162/105 (124) 144/104 (117) Pulse Ox 93 99 99 97 O2 Delivery Ambu-Bag Nasal Cannula Nasal Cannula Nasal Cannula O2 Flow Rate 2 2 2 2 03/31/19 15:30 Pulse 78 Resp 16 B/P (MAP) 133/92 (106) Pulse Ox 96 O2 Delivery Room Air Physical Exam General Appearance: The patient is alert, has no immediate need for airway protection and no current signs of toxicity. Eyes: Pupils equal and round no injection. Respiratory: Chest is non tender, lungs are clear to auscultation. Cardiac: regular rate and rhythm Gastrointestinal: Abdomen is soft and non tender, no masses, bowel sounds normal. Musculoskeletal: Neck: Neck is supple and non tender. Extremities: Right shoulder with deformity. Appears to be an anterior shoulder dislocation. Skin: No rashes or lesions. DIFFERENTIAL DIAGNOSIS: After history and physical exam differential diagnosis was considered for Right shoulder dislocation. Medical Decision Making Data Points Result Diagram: 03/31/19 1357 03/31/19 1357 Laboratory Hematology Test 03/31/19 13:57 Red Blood Count 4.85 M/uL (4.00-5.60) Mean Corpuscular Volume 96.9 fL (80.0-96.0) Mean Corpuscular Hemoglobin 33.2 pg (26.0-33.0) Mean Corpuscular Hemoglobin Concent 34.3 g/dL (32.0-36.0) Red Cell Distribution Width 13.4 % (11.5-14.5) Mean Platelet Volume 7.4 fL (7.2-11.1) Neutrophils (%) (Auto) 51.5 % (39.4-72.5) Lymphocytes (%) (Auto) 26.8 % (17.6-49.6) Monocytes (%) (Auto) 19.0 % (4.1-12.4) Eosinophils (%) (Auto) 1.6 % (0.4-6.7) Basophils (%) (Auto) 1.1 % (0.3-1.4) Nucleated RBC Relative Count (auto) 0.0 /100WBC Neutrophils # (Auto) 1.7 K/uL (2.0-7.4) Lymphocytes # (Auto) 0.9 K/uL (1.3-3.6) Monocytes # (Auto) 0.6 K/uL (0.3-1.0) Eosinophils # (Auto) 0.1 K/uL (0.0-0.5) Basophils # (Auto) 0.0 K/uL (0.0-0.1) Nucleated RBC Absolute Count (auto) 0.00 K/uL Sodium Level 141 mmol/L (137-145) Potassium Level 3.8 mmol/L (3.5-5.0) Chloride Level 106 mmol/L (98-107) Carbon Dioxide Level 22 mmol/L (22-30) Blood Urea Nitrogen 13 mg/dl (9-21) Creatinine 1.00 mg/dl (0.66-1.25) Glomerular Filtration Rate Calc > 60.0 Random Glucose 110 mg/dl (75-110) Calcium Level 8.7 mg/dl (8.4-10.2) Total Bilirubin 0.4 mg/dl (0.2-1.3) Aspartate Amino Transf (AST/SGOT) 146 U/L (0-35) Alanine Aminotransferase (ALT/SGPT) 117 U/L (0-56) Alkaline Phosphatase 135 U/L (0-126) Total Protein 7.4 g/dl (6.3-8.2) Albumin 4.3 g/dl (3.5-5.0) Chemistry Test 03/31/19 13:57 White Blood Count 3.3 k/uL (4.5-11.0) Red Blood Count 4.85 M/uL (4.00-5.60) Hemoglobin 16.1 g/dL (14.0-18.0) Hematocrit 47.0 % (42.0-52.0) Mean Corpuscular Volume 96.9 fL (80.0-96.0) Mean Corpuscular Hemoglobin 33.2 pg (26.0-33.0) Mean Corpuscular Hemoglobin Concent 34.3 g/dL (32.0-36.0) Red Cell Distribution Width 13.4 % (11.5-14.5) Platelet Count 112 K/uL (150-450) Mean Platelet Volume 7.4 fL (7.2-11.1) Neutrophils (%) (Auto) 51.5 % (39.4-72.5) Lymphocytes (%) (Auto) 26.8 % (17.6-49.6) Monocytes (%) (Auto) 19.0 % (4.1-12.4) Eosinophils (%) (Auto) 1.6 % (0.4-6.7) Basophils (%) (Auto) 1.1 % (0.3-1.4) Nucleated RBC Relative Count (auto) 0.0 /100WBC Neutrophils # (Auto) 1.7 K/uL (2.0-7.4) Lymphocytes # (Auto) 0.9 K/uL (1.3-3.6) Monocytes # (Auto) 0.6 K/uL (0.3-1.0) Eosinophils # (Auto) 0.1 K/uL (0.0-0.5) Basophils # (Auto) 0.0 K/uL (0.0-0.1) Nucleated RBC Absolute Count (auto) 0.00 K/uL Glomerular Filtration Rate Calc > 60.0 Calcium Level 8.7 mg/dl (8.4-10.2) Total Bilirubin 0.4 mg/dl (0.2-1.3) Aspartate Amino Transf (AST/SGOT) 146 U/L (0-35) Alanine Aminotransferase (ALT/SGPT) 117 U/L (0-56) Alkaline Phosphatase 135 U/L (0-126) Total Protein 7.4 g/dl (6.3-8.2) Albumin 4.3 g/dl (3.5-5.0) EKG/Imaging Imaging PATIENT NAME: Cyrus Huizar : 1990 MR: [id number] V: [id number] EXAM DATE: ORDERING PHYSICIAN: TAJ VILLAVICENCIO TECHNOLOGIST: Location: [facility] - [place] Patient: Cyrus Huizar : 1990 Visit/Account:[id number] Date of Sevice: 03/31/2019 Exam type: 3 views right shoulder History: Shoulder pain, possible dislocation Comparison: 03/27/2019. Findings: There is an anterior inferior right shoulder dislocation. Hill-Sachs deformity is once again identified. No obvious glenoid fracture. Right lung apex is unremarkable. IMPRESSION: 1. Right anterior inferior shoulder dislocation. 2. Hill-Sachs deformity once again identified involving the humeral head. SHOULDER MIN 2 VIEWS RIGHT Indication: Post reduction from dislocation. Comparison: Exam done earlier in the day. Findings: 2 views of the right shoulder. Successful reduction of the right shoulder dislocation no new dislocation. The superior lateral humeral head does show a can cavity likely from Hill-Sachs deformity. This is unchanged from 03/27/2009. There is no indication of acute fracture. No bony lesions or appreciable degenerative changes. Soft tissues are unremarkable. IMPRESSION: 1. Successful reduction of the dislocation. No discrete indication of acute fracture. Previous Hill-Sachs deformity is again present unchanged from 03/27/2019.. ED Course/Re-evaluation ED Course Upon arrival to the ED, patient admitted to an exam room, hx and physical obtained, differentials considered. Patient presents with right shoulder dislocation. He presented to the ED on Tuesday of this past week with a dislocated right shoulder that was reduced. Patient reports he was down on his knees at work and reaching up for something with his right arm when he felt it dislocate again. He was not wearing his sling and he has not followed-up with ortho yet. Patient rates pain a 10 out of 10 in his right shoulder. On exam, lungs are clear, heart regular. Right shoulder with deformity. X-ray ordered showing anterior right shoulder dislocation. Shoulder reduction planned. Fent anyl 50mcg and zofran 4mg given prior to reduction for relief of pain. Patient was discharged home. He was instructed to leave his arm in the sling. Mother at the time of discharge was concerned about his blood pressure, at that time is 144/101. Has right around where the patient had been running whole time. We discussed starting patient on antihypertensive, which the patient refused. Procedure: Dislocation reduction. The right shoulder was reduced in the usual fashion without complications. Post reduction the patient's neurovascular exam is normal. Post reduction x-ray demonstrates reduction of the joint to the anatomic position. The procedure was performed by Yue Iglesias, [employer] student. Under my direct supervision. Procedure: Procedural sedation. A pre-sedation evaluation was completed on the patient at 1430. Patient is an appropriate candidate for procedural sedation. The risks of the sedation were discussed with the patient. A time out was completed. The patient was re evaluated immediately prior to initiation of sedation. The patient was sedated with etomidate. 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 There were no complications and no significant hypoxemia. I remained at the bedside for the sedation. The total time I spent in the procedural sedation was 10 minutes. Post sedation evaluation: Patient was alert and cooperative, hemodynamically stable with appropriate respiratory status, temperature and pain control without ongoing nausea and vomiting. Patient discharged home with instructions to follow-up with ortho. Patient given prescription of toradol to help with pain. Patient agrees with plan of care. Decision to Disposition Date: Mar 31, 2019 Decision to Disposition Time: 15:25 Depart Departure Latest Vital Signs Vital Signs Date Time Temp Pulse Resp B/P (MAP) Pulse Ox O2 Delivery O2 Flow Rate FiO2 03/31/19 15:30 78 16 133/92 (106) 96 Room Air 03/31/19 14:46 2 03/31/19 14:01 98.4 Impression: Primary Impression: Dislocation of right shoulder joint Condition: Improved Disposition: HOME OR SELF-CARE Referrals: FABIO JOHN MD New Scripts Ketorolac Tromethamine (KETOROLAC TROMETHAMINE) 10 Mg Tab 10 MG PO Q6H PRN for PAIN, #20 TAB Prov: TAJ VILLAVICENCIO 03/31/19 Patient Instructions: Shoulder Dislocation (ED) Additional Instructions: Please drink plenty of water and get plenty of rest. You may take toradol every 6 hours as needed for pain. Follow-up with orthopedics next week. Call on Tuesday. Follow-up with Ivy Dimas regarding your elevated blood pressure. Check it at home on a regular basis. Please return to the ED with increased pain, any difficulty breathing, or chest pain, or any other concerns. Problem Qualifiers Primary Impression: Dislocation of right shoulder joint Encounter type: subsequent encounter Qualified Codes: S43.004D - Unspecified dislocation of right shoulder joint, subsequent encounter TAJ VILLAVICENCIO Mar 31, 2019 14:01
[2019-03-31 14:05] LABS: PLATELET COUNT, AUTOMATED 112 K/uL (150-450)
[2019-03-31] MEDS ORDERED: fentaNYL CITR 100 MCG/2 ML AMP IVP ONE (14:25)
[2019-03-31] MEDS ORDERED: ETOMIDATE 20 MG/10 ML VIAL IVP ONE ×2 (14:25→14:55)
[2019-03-31] MEDS ORDERED: ONDANSETRON 4 MG/2 ML VIAL IVP ONE (14:25)
--- NOTE | 2019-03-31 14:45 | RADIOLOGY IMAGING REPORT ---
FACILITY: [facility] - [place], [place] PATIENT NAME: Cyrus Huizar : 1990 MR: [id number] V: [id number] EXAM DATE: ORDERING PHYSICIAN: TAJ VILLAVICENCIO TECHNOLOGIST: [place] [facility] [place] Cyrus Huizar : 1990 Visit/Account:[id number] Date of Sevice: 03/31/2019 Exam type: 3 views right shoulder History: Shoulder pain, possible dislocation Comparison: 03/27/2019. Findings: There is an anterior inferior right shoulder dislocation. Hill-Sachs deformity is once again identif ied. No obvious glenoid fracture. Right lung apex is unremarkable. IMPRESSION: 1. Right anterior inferior shoulder dislocation. 2. Hill-Sachs deformity once again identified involving the humeral head. Report Dictated By: Rajiv Peterson MD at 03/31/2019 2:39 PM Report E-Signed By: Rajiv Peterson MD at 03/31/2019 2:41 PM [id number]
--- NOTE | 2019-03-31 15:14 | RADIOLOGY IMAGING REPORT ---
FACILITY: [facility] - [place] PATIENT NAME: Cyrus Huizar : 1990 MR: [id number] V: [id number] EXAM DATE: ORDERING PHYSICIAN: TAJ VILLAVICENCIO TECHNOLOGIST: Location: [facility] - [place] Patient: Cyrus Huizar : 1990 Visit/Account:[id number] Date of Sevice: 03/31/2019 SHOULDER MIN 2 VIEWS RIGHT Indication: Post reduction from dislocation. Comparison: Exam done earlier in the day. Findings: 2 views of the right shoulder. Successful reduction of the right shoulder dislocation no new dislocat ion. The superior lateral humeral head does show a can cavity likely from Hill-Sachs deformity. This is unchanged from 03/27/2009. There is no indication of acute fracture. No bony lesions or appreciable degenerative changes. Soft tissues are unremarkable. IMPRESSION: 1. Successful reduction of the dislocation. No discrete indication of acute fracture. Previous Hill-S achs deformity is again present unchanged from 03/27/2019.. Report Dictated By: Rajiv Horton at 03/31/2019 3:05 PM Report E-Signed By: Rajiv Horton at 03/31/2019 3:10 PM WSN:[id number]
[2019-03-31] MEDS ORDERED: KET10 PO (15:25)
[2019-03-31 15:30] VITALS: BP 133/92
== END 2019-03-31 15:40 | disposition home or self-care (01) ==
LOC: ER 13:57
DX: S43.004A Unspecified dislocation of right shoulder joint, initial encounter (principal)
CPT/HCPCS: 23650; 73030; 85025; 96374; 96375; 99152; 99285; J2270; J2405; J3010; J3490; 82040; 82247; 82310; 82374; 82435; 82565; 82947; 84075; 84132; 84155; 84295; 84450; 84460; 84520